=== PATIENT | female | born 1970 | race Caucasian/White ===

== ENCOUNTER 2021-01-27 13:09 | Emergency (ER) | payer MEDICARE, MEDICAID ==
[~2021-01-27] VITALS: Ht 162.6 cm; Wt 118.2 kg
[2021-01-27 13:34] VITALS: BP 188/94
[2021-01-27] MEDS ORDERED: AMOX-422 PO (14:19)
[2021-01-27] MEDS ORDERED: CARB15DR65 RIGHT EAR (14:19)
== END 2021-01-27 14:52 | disposition home or self-care (01) ==
LOC: ER 13:10
DX: H66.91 Otitis media, unspecified, right ear (principal); R05 Cough; H61.21 Impacted cerumen, right ear; Z88.1 Allergy status to other antibiotic agents; Z88.8 Allergy status to other drugs, medicaments and biological substances; Z79.2 Long term (current) use of antibiotics; Z79.899 Other long term (current) drug therapy
CPT/HCPCS: 99283

== ENCOUNTER 2024-06-28 19:55 | Emergency (ER) | payer MEDICARE, MEDICAID ==
[~2024-06-28] VITALS: Ht 162.6 cm; Wt 107.6 kg
[~2024-06-28 19:55] MED LIST: CETI10TA14 PO; CHOL100017 PO; EMPA25TA PO; LISI20TA28 PO; MONT-40 PO; OMEP10CA5 PO; PROP20TA6 PO; SEMA14TA2 PO; SIMV-45 PO; TRAZ-251 PO; ZIPR20CA12 PO
[2024-06-28 19:58] VITALS: PULSE 71
[2024-06-28] MEDS: HYDROcodone/acetaminophen 5mg/325mg tablet PO STA (20:26)
[2024-06-28] MEDS ORDERED: HYDR-3972 PO (23:21)
[2024-06-28] MEDS: ketorolac trometh 30MG/ML vial 30 MG/ML VIAL IM ONE (23:47)
[2024-06-28 23:50] VITALS: BP 142/68; RESP 14; TEMP 98.3; O2SAT 98
== END 2024-06-29 | disposition home or self-care (01) ==
LOC: ER 19:56
DX: S42.211A Unspecified displaced fracture of surgical neck of right humerus, initial encounter for closed fracture (principal); E11.9 Type 2 diabetes mellitus without complications; Z88.1 Allergy status to other antibiotic agents; Z88.2 Allergy status to sulfonamides; Z88.8 Allergy status to other drugs, medicaments and biological substances; W19.XXXA Unspecified fall, initial encounter; Y93.89 Activity, other specified; Y92.89 Other specified places as the place of occurrence of the external cause; Y99.8 Other external cause status
CPT/HCPCS: 73030; 73200; 96372; 99285; J1885

== ENCOUNTER 2025-05-13 14:57 | Emergency (ER) | payer MEDICARE, MEDICAID ==
[~2025-05-13] VITALS: Ht 162.6 cm; Wt 111.4 kg
--- NOTE | 2025-05-13 15:59 | RADIOLOGY REPORT ---
PROCEDURE: DI WRIST, COMPLETE (3VW MIN) 05/13/2025 03:42 PM TECHNIQUE: DI WRIST, COMPLETE (3VW MIN) INDICATION: LEFT WRIST PAIN COMPARISON: None FINDINGS: Comminuted fracture involving the distal radius with intra-articular extension. No significant angulation or displacement. There is volar soft tissue swelling. The ulna and carpal arcs are maintained. IMPRESSION: Comminuted distal radius fracture without significant displacement or angulation
--- NOTE | 2025-05-13 17:51 | Physician Documentation ---
History of Present Illness ~ Chief Complaint: Wrist pain Stated Complaint: FALL WRIST PAIN Time Seen by MD: 15:52 Primary Medical Doctor: TIM Rdz [facility] Patient is a very pleasant 55-year-old female that reports to the emergency department for evaluation of left wrist injury after with the patient described as sidestepping and slipping on wet leaves. Patient fell with an outstretched hand causing immediate pain in her left hand. Patient denies numbness and tingling, patient is a reduced range of motion, patient has significant tenderness with palpation during examination. Patient denies any LOC striking her head head neck or back pain at this time. Patient denies any other symptoms at this time. Tetanus within 5 years: Yes Medication Reconciliation Allergies: Coded Allergies: azithromycin (Verified Allergy, Mild, RASH, 05/13/25) cefazolin (Verified Allergy, Mild, 05/13/25) Sulfa (Sulfonamide Antibiotics) (Verified Allergy, Unknown, 05/13/25) aspartame (Verified Allergy, Unknown, 05/13/25) clarithromycin (Verified Allergy, Unknown, 05/13/25) Scheduled Cetirizine HCl (Cetirizine HCl), 1 TAB PO DAILY, (Reported) Cholecalciferol (Vitamin D3) (Vitamin D3), 1 TAB PO DAILY, (Reported) Empagliflozin (Jardiance), 1 TAB PO DAILY, (Reported) Lisinopril (Lisinopril), 1 TAB PO DAILY, (Reported) Montelukast Sodium (Montelukast Sodium), 1 TAB PO DAILY, (Reported) Omeprazole (Omeprazole), 1 CAP PO DAILY, (Reported) Propranolol Hcl (Propranolol Hcl), 1 TAB PO DAILY, (Reported) Semaglutide (Rybelsus), 1 TAB PO QAM, (Reported) Ziprasidone Hcl (Ziprasidone Hcl), 1 CAP PO BID, (Reported) Scheduled PRN Hydrocodone Bit/Acetaminophen 5/325 MG ([place] 5/325 MG), 1 TAB PO 1200 PRN for pain Trazodone HCl (Trazodone HCl), 1-2 TAB PO HS PRN for sleep, (Reported) Miscellaneous Medications Simvastatin (Simvastatin), 1 TAB PO, (Reported) Past Medical History Past Medical History: Diabetes Patient History: FH: COPD (chronic obstructive pulmonary disease) MOTHER FH: emphysema MOTHER Review of Systems ROS As stated above in the HPI, otherwise all systems are reviewed and negative. Physical Exam Vital Signs: Temperature: 97.7, Source: Temporal, Heart Rate: 60, Respiratory Rate: 16, BP: 156/74, Pulse Oximetry: 96, Weight: 111.400 Oxygen Flow Rate: 0 Physical Exam VITALS: Reviewed and as above. GENERAL: Alert, no apparent distress. MUSCULOSKELETAL No deformities, edema noted on the radial side of the left wrist, reduced range of motion tenderness with palpation during examination. SKIN: Warm and dry, no rash NEURO: Oriented x4, No motor or sensory deficit PSYCH: Normal mood and affect, no agitation Progress Results/Orders Results/Orders Orders - AYDEE FISHER Jillian JOSHI Acetaminophen 325mg Tablet (Tylenol Tabl (05/13/25 18:00) Ibuprofen Tablet (Motrin Tablet) (05/13/25 18:00) Ibuprofen Tablet (Motrin Tablet) (05/13/25 18:00) Vital Signs 05/13/25 15:31 Temp 97.7 Pulse 60 Resp 16 B/P (MAP) 156/74 Pulse Ox 96 O2 Flow Rate 0 Medical Decision Making Additional information obtaine: other Findings Medical Decision Making - Moderate Complexity Chief Complaint: Left wrist pain following fall onto outstretched hand History of Present Illness: This 55-year-old female presented to the emergency department after sustaining a left wrist injury. The patient reports sidestepping on wet leaves, losing balance, and falling onto an outstretched left hand. She experienced immediate pain localized to the left wrist. The patient denies numbness, tingling, loss of consciousness, head injury, neck pain, back pain, or other associated injuries. Physical Examination Findings: Examination revealed reduced range of motion of the left wrist and significant tenderness with palpation. No neurovascular compromise was identified. Diagnostic Considerations: Given the mechanism of injury (fall onto outstretched hand), the primary concern is for distal radius fracture or scaphoid fracture, as falls onto outstretched hands commonly result in these injuries. Radiographic imaging of the left wrist was obtained as recommended by the [employer] for initial evaluation of acute wrist trauma. Risk Stratification: The patient's presentation warrants radiographic evaluation given the high fracture prevalence in acute blunt wrist trauma, which approaches 40% in emergency department populations. Physical examination findings of tenderness and reduced range of motion further support the need for imaging. Treatment Plan: The patient was placed in a volar splint for wrist immobilization to provide support and pain control. Pain management in the emergency department included acetaminophen and ibuprofen. For discharge, the patient will receive a short 2-day course of hydrocodone-acetaminophen ([place]) to bridge pain control until orthopedic follow-up. Disposition and Follow-up: The patient is being discharged home in stable condition with close orthopedic follow-up scheduled for Friday at [facility]. This timely follow-up is appropriate as repeat imaging at 10-14 days or advanced imaging may be necessary if initial radiographs are negative or equivocal for fracture. The patient received detailed discharge instructions regarding splint care, pain management, elevation, ice application, and return precautions including increased pain, numbness, tingling, color changes, or inability to move fingers. Prescriptions: Hydrocodone-acetaminophen 5-325 m-2 tablets every 4-6 hours as needed for pain, quantity 12 tablets (2-day supply until orthopedic follow-up) Continue [id number] acetaminophen and ibuprofen as needed for additional pain control Patient Education: The patient was counseled on the importance of maintaining splint immobilization, avoiding weight-bearing on the affected extremity, and adhering to orthopedic follow-up. Return precautions were reviewed and understood. Medical Necessity: This emergency department visit was medically necessary for evaluation of acute traumatic wrist injury with concern for fracture requiring imaging, immobilization, and specialist referral. ICD-10 Code: S69.82XA - Other specified injuries of left wrist, hand and finger(s), initial encounter General Diff Dx:Considerations: Include: Abrasion, Contusion, Fracture, Hematoma, Laceration, Malunion, Neurovascular injury, Open fracture, Sprain, Ulcer, Other Shoulder Diff Dx:Consideration: Include: AC separation, Adhesive capsulitis, Arthritis, Bicipital tendonitis, Calcific tendonitis, Cervical disc disease, Contusion, Dislocation, Fracture-humerus, Fracture-scapula, Fracture-clavicle, GB disease, Hematoma, Impingement syndrome, Myocardial infarction, Neurovascular injury, Open fracture-humerus, Open fracture-scapula, Open fracture-clavicle, Rotator cuff injury, SC dislocatoin, Sprain, Subacromial bursitis, Other Elbow Diff Dx:Considerations: Include: Abrasion, Arthritis, Contustion, DJD, Fracture-humerus, Fracture-radial head, Fracture-radius, Fracture-ulna, Gout, Hematoma, Laceration, Neurovascular injury, Olecranon bursitis, Open fracture, Osteomyelitis, Radial head subluxation, Rheumatoid arthritis, Septic, Sprain, Ulcer, Other Wrist Diff Dx:Considerations: Include: Abrasion, Arthritis, DJD, Gout, Rheumatoid, Septic, Carpal tunnel snydrome, Contusion, Dislocation, Fracture- carpal, Fracture-radius, Fracture-ulna, Ganglion, Laceration, Neurovascular injury, Open fracture, Strain, Other Hand Diff Dx:Considerations: Include: Abrasion, Arthritis, Contusion, DJD, Felon, Fracture-carpal, Fracture-metacarpal, Fracture-phalynx, Fracture-radius, Fracture-ulna, Gout, Hematoma, Herpetic parag, Laceration, Neurovascular injury, Open fracture, Paronychia, Rheumatoid arthritis, Septic, Sprain, Subungual hematoma, Tenosynovitis, Volar plate injury, Cellulitis, Malunion, Other Finger Diff Dx:Considerations: Include: Abrasion, Cellulitis, Contusion, Dislocation, Fracture, Hematoma, Laceration, Neurovascular injury, Open fracture, Subungual hematoma, Other Departure Disposition: HOME / SELF CARE / HOMELESS Impression: Primary Impression: Wrist joint pain Additional Impression: Distal radial fracture Discharge Instructions: Wrist Pain, Adult, Wrist Fracture Treated With Immobilization Additional Instructions: Your Diagnosis You came to the emergency department after falling on your left wrist. You have a wrist injury that needs time to heal. You were placed in a wrist splint to protect your wrist while it heals. Taking Care of Your Splint Keep your splint on at all times unless your doctor tells you to remove it. Keep your splint clean and dry. Do not get it wet when bathing or showering. Cover it with a plastic bag. If your splint becomes wet, damaged, or too loose, call your orthopedic doctor right away. Do not remove padding from inside the splint. Move your fingers regularly throughout the day to prevent stiffness. Managing Your Pain You may have pain for the first few days after your injury. Here's how to manage it: Take acetaminophen (Tylenol) and ibuprofen (Advil or Motrin) as directed on the bottle. Taking these medications on a regular schedule for the first 2-3 days works better than waiting until you have pain. You have been given a prescription for hydrocodone-acetaminophen ([place]) to use for 2 days if needed for pain that is not controlled by Tylenol and ibuprofen alone. Take only as directed. Elevate your wrist above the level of your heart as much as possible, especially for the first 48-72 hours. This means resting your arm on pillows when sitting or lying down. Apply ice to your wrist for 15-20 minutes at a time, several times per day for the first 2-[address] a thin towel between the ice and your splint. Activity Guidelines Avoid using your injured wrist for heavy lifting, pushing, or pulling. Do not drive while taking narcotic pain medication ([place]). You may return to light activities as comfort allows, but avoid activities that cause pain. Keep your fingers moving throughout the day to prevent stiffness. Warning Signs - Return to the Emergency Department or Call Your Doctor If You Experience: Increased numbness or tingling in your fingers Fingers that turn blue, white, or very pale Fingers that feel cold compared to your other hand Inability to move your fingers Severe pain that does not improve with medication and elevation Increased swelling that makes your splint feel too tight Foul odor coming from your splint Fever over 100.4F Follow-Up Appointments Orthopedic appointment: You have an appointment scheduled for Friday at [facility] at [phone]. This appointment is very important. Do not miss it. Primary care provider: Follow up with your regular doctor as scheduled. If you need additional imaging or treatment, your orthopedic doctor will discuss this with you at your appointment. Medications Prescribed Hydrocodone-acetaminophen ([place]) 5-325 mg: Take 1 tablet every 12 hours. You have enough for 2 days until your orthopedic appointment. Additional Instructions Continue taking acetaminophen and ibuprofen as needed even after you finish the [place]. If you have questions or concerns before your orthopedic appointment, call the [facility]. Important Reminders Your wrist needs time to heal properly. Following these instructions carefully will help ensure the best recovery. Keeping your follow-up appointment with orthopedics is essential for your healing. Referrals: NO PRIMARY CARE PROVIDER (PCP) Prescriptions Hydrocodone Bit/Acetaminophen 5/325 MG ([place] 5/325 MG) 5 Mg/325 Mg Tablet 1 TAB PO 1200 PRN for pain for 2 Days, #4 TAB Prov: AYDEE FISHER 05/13/25 Education Educated: Patient Educated regarding: diagnosis, treatment, need for follow up Signature Scribe Signature: A Attestation: Scribed for Aydee Fisher by MADELYN Wright . 05/13/25 18:01 AYDEE FISHER May 13, 2025 17:51
[2025-05-13] MEDS ORDERED: HYDR-3965 PO (17:58)
[2025-05-13] MEDS: ibuprofen tablet 400 MG TABLET PO ONE (18:11)
[2025-05-13 18:14] VITALS: BP 152/86; PULSE 60; RESP 18; TEMP 97.9; O2SAT 98
== END 2025-05-13 18:16 | disposition home or self-care (01) ==
LOC: ER 14:57
DX: S52.502A Unspecified fracture of the lower end of left radius, initial encounter for closed fracture (principal); E11.9 Type 2 diabetes mellitus without complications; Z88.1 Allergy status to other antibiotic agents; Z88.2 Allergy status to sulfonamides; Z88.8 Allergy status to other drugs, medicaments and biological substances; W01.0XXA Fall on same level from slipping, tripping and stumbling without subsequent striking against object, initial encounter; X58.XXXA Exposure to other specified factors, initial encounter; Y93.89 Activity, other specified; Y92.89 Other specified places as the place of occurrence of the external cause; Y99.8 Other external cause status
CPT/HCPCS: 29125; 73110; 99284